=== PATIENT | female | born 1945 | race African-American/Black ===

== ENCOUNTER 2020-05-02 11:16 | Outpatient (CLI) | payer MEDICARE, SELFPAY ==
[2020-05-02 11:43] LABS: Basophils Absolute Auto 0.1 K/mm3 (0.0-0.1); Basophils Percent Auto 0.8 % (0.2-1.2); Eosinophils Absolute Auto 0.3 K/mm3 (0-0.3); Eosinophils Percent Auto 4.2 % (0-4.4); Hemoglobin 10.4 g/dL (12.0-15.0); Immature Granulocyte Absolute 0.02 K/mm3 (0.00-0.031); Immature Granulocyte Percent A 0.3 % (0-0.5); Immature Reticulocyte Fraction 14.1 % (3.0-15.9); Lymphocytes Absolute Auto 1.37 K/mm3 (0.9-3.2); Mean Corpuscular HGB Conc 31.5 g/dl (32-36); Mean Corpuscular Hemoglobin 26.6 pg (26-34); Mean Corpuscular Volume 84.4 fl (80-100); Mean Platelet Volume 9.8 fl (7.4-10.4); Monocytes Absolute Auto 0.7 K/mm3 (0.1-0.6); Monocytes Percent Auto 11.6 % (2.6-8.5); Neutrophils Absolute Auto 3.6 K/mm3 (1.3-6.7); Neutrophils Percent Auto 60.1 % (45.5-73.1); Platelet Count Result 163 k/mm3 (150-375); Red Blood Count 3.91 M/mm3 (4.2-5.4); Red Cell Distribution Width 19.5 % (11.5-14.5); Reticulocyte Percent 1.42 % (0.7-4.3); Reticulocytes Absolute 0.06 B/L (32.2-175.7)
[2020-05-02 11:52] LABS: Ovalocytes 1+ (NORMAL); Platelet Estimate Adequate (Adequate)
[2020-05-02 12:27] LABS: Iron 22 ug/dL (37-170)
[2020-05-02 12:29] LABS: Alanine Aminotransferase 9 U/L (4-35); Albumin Level 3.4 g/dL (3.5-5.1); Alkaline Phosphatase 76 U/L (38-126); Anion Gap 8 mmol/L (8-16); Aspartate Amino Transferase 27 U/L (14-36); Bilirubin,Total 0.5 mg/dL (0.2-1.3); Blood Urea Nitrogen 44 mg/dL (7-17); Calcium 10.3 mg/dL (8.4-10.2); Carbon Dioxide 33 mmol/L (22-30); Chloride 100 mmol/L (98-107); Estimated Glomerular Filt Rate 7; Glucose 85 mg/dL (65-105); Lactate Dehydrogenase 596 U/L (313-618); Potassium 3.8 mmol/L (3.4-5.0); Sodium 141 mmol/L (137-145)
[2020-05-02 12:37] LABS: Percent Iron Saturation 9 % (20-50)
[2020-05-02 13:36] LABS: Folic Acid > 20.0 ng/mL (2.76->20)
== END 2020-05-02 11:17 | disposition home or self-care (01) ==
PROVIDERS: Visit Provider Internal Medicine Hematology & Oncology
DX: D64.9 Anemia, unspecified (principal)
CPT/HCPCS: 36415; 80053; 82607; 82728; 82746; 83540; 83550; 83615; 85025; 85046